=== PATIENT | female | born 1970 | race Caucasian/White ===

== ENCOUNTER 2018-02-10 23:23 | Emergency (ER) | payer OTHER ==
[~2018-02-10] VITALS: Ht 170.2 cm; Wt 74.8 kg
[~2018-02-10 23:23] MED LIST: AUGMENTIN 875-1 EACH PO; DULOXETINE HCL60 MG PO; LAMICTAL PO; TRAMADOL HCL50 M1 PO
[2018-02-10 23:29] VITALS: BP 155/96
--- NOTE | 2018-02-11 01:41 | ED HEAD/FACIAL INJ COMPLAINT ---
History of Present Illness General Chief Complaint: Laceration Procedure Stated Complaint: "FELL,ETOH" Source: patient, family, old records Exam Limitations: no limitations Vital Signs & Intake/Output Vital Signs & Intake/Output Vital Signs Date Time Temp Pulse Resp B/P B/P Pulse O2 O2 Flow FiO2 Mean Ox Delivery Rate 02/11 0237 18 02/11 0000 99 Room Air 02/10 2329 97.8 91 18 155/96 99 Room Air ED Intake and Output 02/11 0000 02/10 1200 Intake Total Output Total Balance Patient 165 lb Weight Weight Reported by Patient Measurement Method Allergies Coded Allergies: codeine (Intermediate, HIVES 02/10/18) Reconcile Medications Duloxetine HCl 60 MG CAPSULE.DR 1 CAP PO DAILY MENTAL HEALTH (Reported) Lamotrigine (Lamictal XR) 250 MG TAB.ER.24 1 TAB PO DAILY MENTAL HEALTH ( Reported) Triage Note: TRIAGE: PATIENT TO ER FROM HOME W/ FAMILY S/P FALL AND +HIT HEAD, -LOC, -BLOODTHINNERS. PATIENT REPORTS FALL WAS MECHANICAL AND ADMITS TO +ETOH (WINE, 5 GLASSES). PATIENT NOTED W/ LAC TO R FORHEAD APPROX 3.5CM W/ SLIGHT ACTIVE BLEEDING NOTED. DENIES ANY NECK OR BACK PAIN. DENIES OTHER COMPLAINTS. MOVING ALL EXTERMITIES W/O DIFFICULTY. Triage Nurses Notes Reviewed? yes Onset: Just prior to arrival Severity: moderate Location: frontal Method of Injury: fall Loss of Consciousness: no loss of consciousness LMP (ages 10-50): unknown : No Patient currently breastfeeds: No HPI: Prior to admission after drinking alcohol the patient lost her balance and struck her forehead on the ground sustaining laceration. There was no loss of consciousness fever chills nausea vomiting diarrhea abdominal pain chest pain shortness of breath dysuria rash. Past History Travel History Traveled to [place] past 21 day No Medical History Any Pertinent Medical History? see below for history Neurological: migraine EENT: NONE Cardiovascular: NONE Respiratory: NONE Gastrointestinal: NONE Hepatic: NONE Renal: NONE Musculoskeletal: NONE Psychiatric: depression Endocrine: NONE Blood Disorders: NONE Cancer(s): NONE FLARE MAN/Reproductive: NONE History of MRSA: No History of VRE: No History of CDIFF: No Surgical History Surgical History: non-contributory Psychosocial History What is your primary language Kinyarwanda Tobacco Use: Current Daily Use Daily Tobacco Use Amount/Type: => 5 Cigarettes daily ETOH Use: occasional use Family History Hx Contributory? No Review of Systems Review of Systems Constitutional: Reports: no symptoms. EENTM: Reports: no symptoms. Respiratory: Reports: no symptoms. Cardiovascular: Reports: no symptoms. GI: Reports: no symptoms. Genitourinary: Reports: no symptoms. Musculoskeletal: Reports: no symptoms. Skin: Reports: see HPI. Neurological/Psychological: Reports: see HPI, headache. Hematologic/Endocrine: Reports: no symptoms. Immunologic/Allergic: Reports: no symptoms. All Other Systems: Reviewed and Negative Physical Exam Physical Exam General Appearance: well developed/nourished, alert, awake, mild distress, intoxicated Head: contusions, lacerations Eyes: Bilateral: normal appearance, PERRL, EOMI. Ears, Nose, Throat: normal pharynx, normal ENT inspection, hearing grossly normal Neck: normal inspection, supple Respiratory: normal breath sounds, chest non-tender, no respiratory distress, quiet respiration Cardiovascular: regular rate/rhythm, normal peripheral pulses, norml femoral pulses equa Gastrointestinal: normal bowel sounds, soft, non-tender, no organomegaly Back: normal inspection, normal range of motion, no vertebral tenderness Extremities: normal inspection, normal capillary refill, normal range of motion, no edema Psychiatric: awake, alert, oriented x 3 Cranial Nerves: normal hearing, normal speech, PERRL Coordination/Gait: normal finger to nose, normal gait Motor/Sensory: no motor/sensory deficits Reflexes: 2+: bicep (R), bicep (L). Skin: normal color, warm/dry, right forehead laceration with abrasion lateral to right eye Lymphatic: no anterior cervical rufina Progress Differential Diagnosis: facial fracture Plan of Care: Orders Procedure Date/time Status URINE 02/11 47 Complete Laboratory Tests 02/11/18 0124: Urine Test NEGATIVE Diagnostic Imaging: Viewed by Me: CT Scan. Discussed w/RAD: CT Scan. Radiology Impression: 1. No acute intracranial findings. Right frontal soft tissue swelling and laceration. 2. No acute fracture or malalignment of the cervical spine. Moderate degenerative changes. Departure Departure Time of Disposition: 223 Disposition: HOME OR SELF CARE Condition: Stable Clinical Impression Primary Impression: Simple laceration of face Secondary Impressions: Alcohol intoxication, Head injury due to trauma Referrals: Jolly LING,Candie Frank (PCP/Family) Additional Instructions: Suture removal 10-14 days Departure Forms: Customer Survey General Discharge Information Procedures Laceration/Wound Repair Laceration/Wound Repair: Wound Location: face Wound's Depth, Shape: contused tissue, irregular Wound Length (cm): 4.5 Wound Explored: no foreign body removed, irrigated extensively Irrigated w/ Saline (ccs): 500 Betadine Prep? No Anesthesia: 1% lidocaine Volume Anesthetic (ccs): 8 Wound Repaired With: sutures Suture Size/Type: 5:0, nylon Number of Sutures: 7 Layer Closure? No Sterile Dressing Applied: Yes Splint Applied? No
--- NOTE | 2018-02-11 02:14 | CT SCAN REPORT ---
EXAMINATION: NONCONTRAST HEAD CT NONCONTRAST CERVICAL SPINE CT INDICATION INFORMATION: Fall and hit head. Positive EtOH. COMPARISON: None. TECHNIQUE: Separate noncontrast CT examinations of the head and cervical spine were performed. Coronal and sagittal images were created for each examination at the technologist workstation. DLP: 1089 mGy-cm FINDINGS: Head: There is no evidence of acute intracranial hemorrhage or territorial infarction. No abnormal mass effect or midline shift is seen. Cannon to white matter differentiation is well preserved. No extra-axial fluid collections are identified. No hydrocephalus. No significant volume loss. There is no abnormal attenuation within the brain parenchyma. Right frontal soft tissue swelling. No underlying calvarial fracture. Laceration noted.. Mastoid air cells are well aerated. Moderate mucosal thickening of the sphenoid sinuses. Postsurgical changes of the maxillary sinuses and ethmoid air cells. Mucosal thickening present. Cervical spine: There is anatomic alignment of the vertebral bodies and posterior elements. The atlantoaxial and atlantooccipital articulations are intact. Vertebral body heights are maintained. There is multilevel intervertebral disc space narrowing with endplate osteophyte formation and facet arthropathy. No evidence of acute fracture. No prevertebral soft tissue swelling. Visualized portions of the lung apices are unremarkable. The thyroid gland is unremarkable. IMPRESSION: 1. No acute intracranial findings. Right frontal soft tissue swelling and laceration. 2. No acute fracture or malalignment of the cervical spine. Moderate degenerative changes.
== END 2018-02-11 02:37 ==
LOC: ERH 23:23
DX: S01.81XA Laceration without foreign body of other part of head, initial encounter (principal); S09.90XA Unspecified injury of head, initial encounter; F10.129 Alcohol abuse with intoxication, unspecified; W19.XXXA Unspecified fall, initial encounter
CPT/HCPCS: 81025